=== PATIENT | female | born 1955 | race Caucasian/White ===

== ENCOUNTER 2019-01-17 14:02 | Outpatient (CLI) | payer BC, OTHER ==
[~2019-01-17 14:02] MED LIST: KETO75CA PO; LANS30CA54 PO; MULT-1045 PO; ORUVAIL PO; SULF500T PO
[2019-01-17 14:48] LABS: BASOPHILS # (AUTO) 0.1 K/uL (0.0-8.0); BASOPHILS % (AUTO) 0.6 % (0.0-2.0); EOSINOPHILS # (AUTO) 0.1 K/uL (0.0-0.7); EOSINOPHILS % (AUTO) 1.4 % (0.0-7.0); HEMATOCRIT 38.5 % (31.2-41.9); HEMOGLOBIN 12.8 g/dL (10.9-14.3); LYMPHOCYTES # (AUTO) 2.8 K/uL (20.0-40.0); LYMPHOCYTES % (AUTO) 27.2 % (20.5-51.5); MEAN CORPUSCULAR HGB CONC 33 g/dL (32.3-35.6); MEAN CORPUSCULAR VOLUME 96.3 fL (75.5-95.3); MONOCYTES # (AUTO) 0.7 K/uL (2.0-10.0); MONOCYTES % (AUTO) 7.1 % (0.0-11.0); NEUTROPHILS # (AUTO) 6.4 K/uL (1.8-8.9); NEUTROPHILS % (AUTO) 63.7 % (38.5-71.5); PLATELET COUNT (AUTO) 323 K/uL (179-408); WHITE BLOOD COUNT (AUTO) 10.1 K/uL (3.8-11.8)
[2019-01-17 15:03] LABS: BILIRUBIN,TOTAL 0.2 mg/dL (0.2-1.0); CREATININE 0.8 mg/dL (0.6-1.3); TOTAL PROTEIN, SERUM 6.7 g/dL (6.4-8.2)
== END 2019-01-17 23:59 | disposition home or self-care (01) ==
LOC: LAB 14:02
DX: M72.2 Plantar fascial fibromatosis (principal); Z79.899 Other long term (current) drug therapy
CPT/HCPCS: 36415; 85025

== ENCOUNTER 2019-08-14 14:15 | Outpatient (CLI) | payer BC, OTHER ==
[2019-08-14 14:48] LABS: BASOPHILS % (AUTO) 0.5 % (0.0-2.0); EOSINOPHILS # (AUTO) 0.1 K/uL (0.0-0.7); EOSINOPHILS % (AUTO) 1.8 % (0.0-7.0); HEMATOCRIT 38.9 % (31.2-41.9); HEMOGLOBIN 13.1 g/dL (10.9-14.3); LYMPHOCYTES # (AUTO) 2.9 K/uL (20.0-40.0); LYMPHOCYTES % (AUTO) 36.3 % (20.5-51.5); MEAN CORPUSCULAR HEMOGLOBIN 32.6 uug (24.7-32.8); MEAN CORPUSCULAR HGB CONC 34 g/dL (32.3-35.6); MEAN CORPUSCULAR VOLUME 96.4 fL (75.5-95.3); MONOCYTES # (AUTO) 0.7 K/uL (2.0-10.0); MONOCYTES % (AUTO) 9.3 % (0.0-11.0); NEUTROPHILS # (AUTO) 4.1 K/uL (1.8-8.9); NEUTROPHILS % (AUTO) 52.1 % (38.5-71.5); PLATELET COUNT (AUTO) 331 K/uL (179-408); RED BLOOD CELL COUNT(AUTO) 4.04 MIL/uL (3.63-4.92)
[2019-08-14 15:00] LABS: BILIRUBIN,TOTAL 0.2 mg/dL (0.2-1.0); CREATININE 1.1 mg/dL (0.6-1.3); POTASSIUM 4.1 mmol/L (3.5-5.1); TOTAL PROTEIN, SERUM 7.1 g/dL (6.4-8.2)
[2019-08-14 17:09] LABS: *RHEUMATOID FACTOR SCREEN NEGATIVE (NEGATIVE)
[2019-08-15 07:06] LABS: COMPLEMENT, C3 SERUM 107 mg/dL (82-167); COMPLEMENT, C4 SERUM 20 mg/dL (14-44)
== END 2019-08-14 23:59 | disposition home or self-care (01) ==
LOC: LAB 14:15
DX: M06.4 Inflammatory polyarthropathy (principal)
CPT/HCPCS: 85025; 85651; 86038; 86160; 86430

== ENCOUNTER 2019-10-17 11:00 | Emergency (ER) | payer BC, OTHER ==
[~2019-10-17] VITALS: Ht 160 cm; Wt 49.0 kg
--- NOTE | 2019-10-17 11:34 | NUR ---
PT WAS EVALUATED BY DR POE. PT WAS D/C'd TO HOME. D/C INSTRUCTIONS GIVEN TO THE PT.
[2019-10-17 11:43] VITALS: BP 136/88
== END 2019-10-17 11:45 | disposition home or self-care (01) ==
LOC: ER 11:00
DX: R50.9 Fever, unspecified (principal); Z20.828 Contact with and (suspected) exposure to other viral communicable diseases
CPT/HCPCS: A4663